=== PATIENT | female | born 2000 | race Caucasian/White ===

== ENCOUNTER 2020-07-08 08:23 | Emergency (ER) | payer BC, SELFPAY ==
[2020-07-08 08:24] VITALS: BP 133/84; PULSE 108; RESP 16; TEMP 36; O2SAT 98; BMI 28.2
[2020-07-08] MEDS: 0.9% Normal Saline 1,000 ML 1000 ML IV (08:57)
[2020-07-08] MEDS: Ondansetron 4 MG/2 ML Vial IV (08:58)
[2020-07-08] MEDS: Morphine 4 MG/ML Syringe IV (08:58)
[2020-07-08 09:16] LABS: Absolute Lymphocyte Count 1.39 X10^3/uL (0.83-4.51); Absolute Neutrophil Count 4.6 X10^3/uL (2.0-7.7); Basophil# 0.05 X10^3/uL; Basophil% 0.8 % (0-1); Eosinophil# 0.09 X10^3/uL; Eosinophils% 1.4 % (0-5); Hemoglobin 14.6 g/dL (12.0-15.0); Lymphocyte # 1.39 X10^3/ul (4.0); Lymphocyte % 21.4 % (19-41); Mean Corp Hgb Conc 33.2 g/dL (32-36); Mean Corpuscular Hgb 30.4 pg (27.0-32.0); Mean Corpuscular Volume 91.5 fL (81-99); Mean Platelet Vol. 9.7 fl (6.2-12.0); Monocyte# 0.36 X10^3/uL; Monocyte% 5.5 % (0-10); NRBC Flagged by Analyzer 0 % (0-5); Neutrophil # 4.59 X10^3/uL (2.7-7.7); Neutrophil % 70.6 % (47-70); Platelet Count 328 K/mm3 (150-450); RBC Distribution Width CV 12.3 % (11.6-14.6); RBC Distribution Width SD 41.3 fl (35.1-43.9); Red Blood Count 4.81 M/mm3 (4.2-5.4); White Blood Count 6.5 K/mm3 (4.4-11.0)
[2020-07-08 09:40] LABS: Mucous, Urine 0 SEEN /hpf (<or=2+); Red Blood Cells-Urine 0 SEEN /hpf (0-5); White Blood Cells 0 SEEN /hpf (0-5)
[2020-07-08 09:42] LABS: Color, Urine Yellow (Yellow); Glucose, Dipstick Normal (Normal); Ketone-Dipstick Negative (Negative); Leukocyte Esterase-Dipstick Negative /ul (Negative); Nitrite-Dipstick Negative (Negative); Occult Blood-Urine Negative /ul (Negative); Protein-Dipstick Negative (Negative); Urine Bilirubin Dipstick Negative (Negative); Urine Clarity Clear (Clear); Urine Urobilinogen Normal (Normal); Urine pH 6.5 (5.0 - 8.0)
[2020-07-08 09:43] LABS: ALB/GLOB Ratio 1.3 RATIO (0.9-2.4); AST(SGOT) 14 U/L (15-37); Alanine Aminotransfer ALT/SGPT 24 U/L (13-56); Albumin, Serum 4.3 g/dL (3.2-5.0); Alkaline Phosphatase 86 U/L (45-117); Anion Gap 7 (5-15); BUN 14 mg/dL (7-18); BUN/Creat Ratio 14.9 RATIO (10-20); Calcium,Total 9.8 mg/dL (8.5-10.1); Chloride 106 mmol/L (98-107); Creatinine, Serum 0.94 mg/dL (0.55-1.02); EST Glomerular Filtration Rate 79 mL/min (>60); Est Glom Filt Rate - Afr Amer 96 mL/min (>60); Estimated Creatinine Clearance 87.88 ml/min; Globulin 3.4 g/dL (2.2-4.2); Glucose 95 mg/dL (74-106); Lipase 141 U/L (73-393); Potassium 3.6 mmol/L (3.5-5.1); Protein, Total 7.7 g/dL (6.4-8.2); Sodium Level 141 mmol/L (136-145)
[2020-07-08 09:50] LABS: Bacteria RARE /hpf (None Seen); Squamous Epithelial Cells - UA 0-5 SEEN /hpf (5-10)
[2020-07-08 09:52] LABS: Internal QC Validated? YES +Cl - CLEAR BKGD; Pregnancy, Serum, hCG Quali. NEGATIVE Negative
--- NOTE | 2020-07-08 10:01 | CT_ITS ---
STUDY: CT ABDOMEN AND PELVIS WITH CONTRAST REASON FOR EXAM: Female, 20 years old. LUQ PAIN. Hx of appy RADIATION DOSAGE (If Supplied By Facility): CTDIvol = ( 12.53 ) mGy, DLP = ( 652.97 ) mGycm TECHNIQUE: Transaxial images were obtained from the dome of the diaphragm to the symphysis pubis without oral contrast. IV 100mL Isovue-300 was administered. Sagittal and coronal images were reconstructed. Individualized dose optimization techniques were used for this CT. COMPARISON: None. FINDINGS: The visualized lung bases are unremarkable. The visualized portions of the heart are within normal limits. Normal liver. Normal gallbladder and extrahepatic biliary system. Normal spleen. Normal pancreas. Normal bilateral adrenal glands. Normal right kidney. Normal left kidney. Normal visualized stomach. Normal small intestine. Normal colon. The patient is status post appendectomy. Normal abdominal aorta. Normal inferior vena cava. Normal retroperitoneum. Normal urinary bladder. Small follicles are seen in both ovaries. Normal abdominal wall. Limbus vertebrae of the superior anterior endplate of the L4 vertebrae. CT/Abdomen/Pelvis W IV Cont ONLY IMPRESSION: Normal enhanced CT of the abdomen and pelvis. Electronically Signed: James Barroso MD at 10:27 EST , Service support ,
--- NOTE | 2020-07-08 10:03 | ED.DCSUM_ITS ---
History of Present Illness Chief Complaint: Abd Pain Narrative: Patient presenting for evaluation secondary to abdominal pain. Patient reports that she had a relatively sudden onset of left upper quadrant abdominal pain this morning. She reports that it caused her difficulty with sleeping. Has been associated with some nausea, no vomiting. Patient denies that she has any urinary signs or symptoms. Most recent menstrual cycle was within the last 8 days. She denies any vaginal bleeding currently. No fevers. No diarrhea. No change in color or character of her stools. Patient has a history of a distant appendectomy. Patient took ibuprofen at home and it did not seem to alleviate her symptoms. Past Medical History - Allergies and Home Meds Allergies/Adverse Reactions: Allergies No Known Allergies Allergy (Verified 07/08/20 08:25) Primary Care Physician: Mila Mayberry MD [Primary Care Provider] - Surgical History: appendectomy Lives: With Family Smoking Status: Never smoker Alcohol: None Drugs: None Review of Systems All systems negative except as indicated General: Reports: Malaise Eyes: Denies: Visual changes - bilaterally, Diplopia ENT: Denies: Rhinorrhea, Sore throat Cardiovascular: Denies: Chest pain, Palpitations Respiratory: Denies: Dyspnea, Cough, Dyspnea on exertion Gastrointestinal: Reports: Abdominal pain, Nausea Genitourinary: Denies: Dysuria, Hematuria, Frequency Musculoskeletal: Denies: Back pain, Extremity Pain Skin: Denies: Rash, Wounds Neurological: Denies: Headache, Weakness, Numbness Physical Exam Vital Signs/Narrative: Vital Signs Temp Pulse Resp BP Pulse Ox 07/08/20 08:24 96.8 F L 108 H 16 133/84 H 98 Inital Vital Signs reviewed: Yes General: Well nourished, Well developed, No Acute Distress Head: Normocephalic, Atraumatic Eyes: Perrl, EOMI ENT: Moist mucous membranes, No rhinorrhea Neck: Supple, Nontender Cardiovascular: Regular rate, Regular rhythm, No murmurs Respiratory: No distress, CTA bilaterally, Chest nontender Abdomen: Soft, Nondistended, Normal bowel sounds, Tender - LUQ and LLQ. Negative for: Guarding, Rebound tenderness Back: Nontender, Normal Inspection Extremities: Nontender, No edema Skin: Normal color, No rash Neurological: Alert, Oriented x3, Cranial nerves II-XII grossly intact, Normal Strength, Normal Sensation Psychological: Normal affect, Normal Mood Diagnostic/Tx/Re-eval Clinical Impression(s) from Imaging Studies Abdomen/Pelvis CT 07/08/20 10:01 IMPRESSION: Normal enhanced CT of the abdomen and pelvis. Electronically Signed: James Barroso MD at 10:27 EST , Service support , Laboratory Data 07/08/20 07/08/20 07/08/20 09:00 09:00 09:00 WBC 6.5 RBC 4.81 Hgb 14.6 Hct 44.0 MCV 91.5 MCH 30.4 MCHC 33.2 RDW Std Deviation 41.3 RDW Coeff of [place] 12.3 Plt Count 328 MPV 9.7 Immature Gran % (Auto) 0.300 Neut % (Auto) 70.6 H Lymph % (Auto) 21.4 [place] % (Auto) 5.5 Eos % (Auto) 1.4 Baso % (Auto) 0.8 Absolute Neuts (auto) 4.6 Absolute Lymphs (auto) 1.39 Nucleated RBC % 0 Sodium 141 Potassium 3.6 Chloride 106 Carbon Dioxide 28.0 Anion Gap 7 BUN 14 Creatinine 0.94 Estim Creat Clear Calc 87.88 Est GFR (MDRD) Af Amer 96 Est GFR (MDRD) Non-Af 79 BUN/Creatinine Ratio 14.9 Glucose 95 Calcium 9.8 Total Bilirubin 0.50 AST 14 L ALT 24 Alkaline Phosphatase 86 Total Protein 7.7 Albumin 4.3 Globulin 3.4 Albumin/Globulin Ratio 1.3 Lipase 141 Serum , Qual NEGATIVE Urine Color Urine Clarity Urine pH Ur Specific [place] Urine Protein Urine Glucose (UA) Urine Ketones Urine Occult Blood Urine Nitrite Urine Bilirubin Urine Urobilinogen Ur Leukocyte Esterase Urine RBC Urine WBC Ur Squamous Epith Cells Urine Bacteria Urine Mucus 07/08/20 09:32 WBC RBC Hgb Hct MCV MCH MCHC RDW Std Deviation RDW Coeff of [place] Plt Count MPV Immature Gran % (Auto) Neut % (Auto) Lymph % (Auto) [place] % (Auto) Eos % (Auto) Baso % (Auto) Absolute Neuts (auto) Absolute Lymphs (auto) Nucleated RBC % Sodium Potassium Chloride Carbon Dioxide Anion Gap BUN Creatinine Estim Creat Clear Calc Est GFR (MDRD) Af Amer Est GFR (MDRD) Non-Af BUN/Creatinine Ratio Glucose Calcium Total Bilirubin AST ALT Alkaline Phosphatase Total Protein Albumin Globulin Albumin/Globulin Ratio Lipase Serum , Qual Urine Color Yellow Urine Clarity Clear Urine pH 6.5 Ur Specific [place] 1.010 Urine Protein Negative Urine Glucose (UA) Normal Urine Ketones Negative Urine Occult Blood Negative Urine Nitrite Negative Urine Bilirubin Negative Urine Urobilinogen Normal Ur Leukocyte Esterase Negative Urine RBC 0 SEEN Urine WBC 0 SEEN Ur Squamous Epith Cells 0-5 SEEN Urine Bacteria RARE Urine Mucus 0 SEEN - Medical Decision Making Patient to abdominal pain. IV was established patient was given morphine and Zofran. CBC CMP lipase urinalysis and test were all obtained were found to be unremarkable. CT abdomen and pelvis with IV contrast was performed, does not show any evidence of acute pathology. Repeat evaluation of the patient at 11 AM shows the patient to have improvement of her abdominal symptoms, but continued left upper quadrant pain. This potentially could be associated with an ulcer, patient will be started on a PPI. Patient also will be sent home with a short course of [place] for pain control. She understands signs and symptoms which to return. Given the sudden onset of this, I do believe that the patient would benefit from 24-hour follow-up. I discussed this with on-call surgery Dr. Villarreal who agrees to see the patient in follow-up. ED Disposition - Plan for ED Patient: Disposition: Home or Assisted Living Diagnosis: Abdominal pain Instructions: ED Abdominal Pain Unkn Cause Fem Prescriptions: Hydrocodone Bitart/Apap 5-325 [[place] 5MG-325MG] 1 tab PO Q6H PRN PRN 3 Days #9 tab PRN Reason: Pain Prescription Printed Omeprazole 40 mg PO DAILY #30 capsule.dr Prescription Printed Referrals: Lani Villarreal MD [STAFF PHYSICIAN] - 1 Day
--- NOTE | 2020-07-08 10:56 | NURSING ---
DR GARCIA PAGED
[2020-07-08 11:22] VITALS: PULSE 76; RESP 16; O2SAT 97
== END 2020-07-08 11:24 | disposition home or self-care (01) ==
PROVIDERS: Emergency Provider Emergency Medicine; PCP Pediatrics
DX: R10.12 Left upper quadrant pain (principal); R10.32 Left lower quadrant pain; Z90.89 Acquired absence of other organs
CPT/HCPCS: 74177; 80053; 81001; 83690; 84703; 85025; 96361; 96374; 96375; 99284; J7030; Q9967; J2405

== ENCOUNTER 2021-05-13 03:23 | Emergency (ER) | payer BC, SELFPAY ==
[2021-05-13 03:24] VITALS: BP 133/96; PULSE 95; RESP 18; TEMP 36.7; O2SAT 95; BMI 27.4
[2021-05-13 03:26] VITALS: BP 133/96; PULSE 95; RESP 18; TEMP 36.7; O2SAT 95
--- NOTE | 2021-05-13 03:38 | CT_ITS ---
STUDY: CT ABDOMEN AND PELVIS WITHOUT CONTRAST REASON FOR EXAM: Female, 20 years old. LEFT FLANK PAIN RADIATION DOSAGE (If Supplied By Facility): CTDIvol = ( 7.82 ) mGy, DLP = ( 412.11 ) mGycm TECHNIQUE: Transaxial images were obtained from the dome of the diaphragm to the symphysis pubis without oral contrast, and without intravenous contrast. Sagittal and coronal images were reconstructed. Individualized dose optimization techniques were used for this CT. COMPARISON: None. FINDINGS: The visualized lung bases are unremarkable. The visualized portions of the heart are within normal limits. Normal liver. Normal gallbladder and extrahepatic biliary system. Normal spleen. Normal pancreas. Normal bilateral adrenal glands. Normal right kidney. Normal left kidney. Normal visualized stomach. Normal small intestine. There is abundant stool in the colon from the cecum to the rectum. There is non-visualization of the appendix. Normal abdominal aorta. Normal inferior vena cava. Normal retroperitoneum. There are bilateral phleboliths in the pelvis. Normal urinary bladder. Normal visualized uterus. Normal abdominal wall. There is a limbus vertebra at the level of L4. There is minimal degenerative change. CT/Abdomen/Pelvis without Cont IMPRESSION: Constipation. No visualized renal ureteral or bladder calculi. Nonvisualization of the appendix. Electronically Signed: Jenn Lowry MD at 5:41 EST Tel , Service support ,
--- NOTE | 2021-05-13 03:39 | EDS_ITS ---
HPI History of Present Illness Chief Complaint: Complaint Narrative Narrative: Patient is a 20-year-old female who states that she has had urinary frequency urgency and dysuria for the past 1 to 2 days. She states that this evening she developed pain and her back mainly on the left with no trauma. She states she has not been able to sleep secondary to this. She reports that the she then noticed her urine was becoming bloody and she is concerned about possible kidney stone. Secondary to this she presents for evaluation. Patient denies any vaginal discharge or concern for STD and denies [facility] Medical History No pertinent past medical history Home Medications bupropion HCl 75 mg PO DAILY 05/13/21 [History Last Taken Unknown] ketorolac 10 mg PO Q6H PRN 5 Days #20 tab 05/13/21 [Rx Last Taken Unknown] levonorgestrel 1.5 mg PO DAILY 05/13/21 [History Last Taken Unknown] phenazopyridine [Pyridium] 200 mg PO TID 2 Days #6 tab 05/13/21 [Rx Last Taken Unknown] sertraline 50 mg PO DAILY 05/13/21 [History Last Taken Unknown] sulfamethoxazole-trimethoprim [Bactrim DS] 1 tab PO BID #20 tab 05/13/21 [Rx Last Taken Unknown] Allergy/AdvReac Type Severity Reaction Status Date / Time No Known Allergies Allergy Verified 07/10/20 10:04 Family History (Updated 07/10/20 @ 10:02 by Bertha Shukla) Father Diabetes Surgical History (Updated 07/10/20 @ 10:02 by Bertha Shukla) History of appendectomy (~2009) Social History (Updated 07/10/20 @ 10:[address] Lani Villarreal MD) Smoking Status: Never smoker ROS ROS ED Constitutional Constitutional ED: Denies chills or fever(s) Cardiovascular Cardiovascular: Denies chest pain Respiratory/Chest Respiratory/Chest: Denies cough or dyspnea Gastrointestinal Gastrointestinal: Reports abdominal pain; Denies diarrhea, nausea or vomiting Genitourinary Genitourinary ED: Reports dysuria and hematuria Musculoskeletal Musculoskeletal: Reports back pain; Denies myalgias Integumentary Denies rash Neurologic Neurologic: Denies headache(s) EXAM Physical Exam Const Vital Signs: 05/13/21 03:24 05/13/21 03:26 Temperature 98.0 F 98.0 F Temperature Source Temporal Temporal Pulse Rate 95 95 Respiratory Rate 18 18 Blood Pressure 133/96 H 133/96 H Blood Pressure Mean 108 108 Pulse Ox 95 95 Oxygen Delivery Method Room Air Room Air Positive well nourished and well developed General Appearance ED: well developed Eyes PERRL and EOMs intact bilaterally Neck supple Resp normal respiratory effort and clear to auscultation bilaterally Cardio regular rate and regular rhythm Rate: other Other Details: Radial pulses are plus 2 out of 4 bilaterally are equal and symmetric GI non-distended and no masses GI Narrative: Abdomen is soft and nondistended with normal active bowel sounds. There is diffuse pain with palpation in the lower abdomen greatest in the suprapubic region without voluntary guarding or rigidity. Auscultation: normoactive bowel sounds Palpation: soft Back/Spine Back/Spine Narrative: Positive left CVA pain Extremity normal to inspection Neuro oriented x3 and CN's II-XII intact bilaterally Sensorium / Orientation: alert Motor Exam: strength 5/5 throughout Psych mental status grossly normal Skin no rashes or lesions noted MDM MDM MDM Narrative Medical decision making narrative: Patient presented to the ER afebrile but she did have flank pain slightly greater on the left and reported hematuria therefore there was concern for kidney stone and basic labs and a CT were obtained. Labs revealed leukocytosis at 14.8 but no left shift. Patient also had no changes to suggest acute kidney injury. CT was obtained which revealed no obvious kidney stone. After patient was treated with IV fluids Pyridium and Toradol she did report improvement of her pain. At this time patient's urine is consistent with infection she has an elevated white count which also supports this but she does not have a fever tachycardia or hypotension to suggest systemic infection. Therefore this time I do not feel patient needs inpatient treatment but can be placed on outpatient antibiotics and return to the hospital if she has any worsening of her symptoms. Discharge Plan Triage Chief Complaint: Complaint ED Provider: Eulogio Benton Dx/Rx/DC Orders Clinical Impression: Acute pyelonephritis Instructions: ED Pyelonephritis, Female (Adult) Prescriptions: New phenazopyridine [Pyridium] 200 mg tablet 200 mg PO TID 2 Days Qty: 6 RF: 0 ketorolac 10 mg tablet 10 mg PO Q6H PRN (Reason: pain) 5 Days Qty: 20 RF: 0 sulfamethoxazole-trimethoprim [Bactrim DS] 800-160 mg tablet 1 tab PO BID Qty: 20 RF: 0 No Action bupropion HCl 75 mg tablet 75 mg PO DAILY RF: 0 sertraline 50 mg tablet 50 mg PO DAILY RF: 0 levonorgestrel 1.5 mg tablet 1.5 mg PO DAILY RF: 0 Primary Care Provider: Chika Lambert Referrals: Chika Lambert MD [Primary Care Provider] - Disposition Disposition: Home, Self Care
--- NOTE | 2021-05-13 04:11 | ED.RN ---
TORADOL 30MG AND 1 L 0.9%NS STARTED ON PATIENT ORDERED.
--- NOTE | 2021-05-13 04:57 | ED.RN ---
Rocephin started as ordered. Pain is down to 6/10.
[2021-05-13 06:04] VITALS: BP 108/78; PULSE 75; RESP 16; O2SAT 99
--- NOTE | 2021-05-13 06:04 | ED.RN ---
All medications has completed.
[2021-05-13 06:49] LABS: Mucous, Urine 0 SEEN /hpf (<or=2+)
[2021-05-13 07:14] LABS: Color, Urine Amber (Yellow); Glucose, Dipstick NEGATIVE (Normal); Ketone-Dipstick 5 mg/dl (Negative); Urine Bilirubin Dipstick Negative (Negative); Urine Clarity Turbid (Clear)
[2021-05-13 07:15] LABS: Bacteria 1+ /hpf (None Seen); Internal QC Validated? YES +Cl - CLEAR BKGD; Leukocyte Esterase-Dipstick 500 /ul (Negative); Nitrite-Dipstick Negative (Negative); Occult Blood-Urine 250 /ul (Negative); Pregnancy, Urine Negative Negative; Protein-Dipstick 500 mg/dl (Negative); Red Blood Cells-Urine 50-100 SEEN /hpf (0-5); Squamous Epithelial Cells - UA 0-5 SEEN /hpf (5-10); Urine Urobilinogen Normal (Normal); White Blood Cells >100 SEEN /hpf (0-5)
[2021-05-13 07:18] LABS: Absolute Lymphocyte Count 2.15 X10^3/uL (0.83-4.51); Absolute Neutrophil Count 11.5 X10^3/uL (2.0-7.7); Basophil# 0.08 X10^3/uL; Basophil% 0.5 % (0-1); Eosinophil# 0.22 X10^3/uL; Eosinophils% 1.5 % (0-5); Hematocrit 40.2 % (37-47); Hemoglobin 13.3 g/dL (12.0-15.0); Lymphocyte # 2.15 X10^3/ul (0.83-4.51); Lymphocyte % 14.5 % (19-41); Mean Corp Hgb Conc 33.1 g/dL (32-36); Mean Corpuscular Volume 90.7 fL (81-99); Mean Platelet Vol. 9.1 fl (6.2-12.0); Monocyte# 0.81 X10^3/uL; Monocyte% 5.5 % (0-10); NRBC Flagged by Analyzer 0 % (0-5); Neutrophil # 11.54 X10^3/uL (2.7-7.7); Neutrophil % 77.7 % (47-70); Platelet Count 330 K/mm3 (150-450); RBC Distribution Width CV 12.5 % (11.6-14.6); RBC Distribution Width SD 41.7 fl (35.1-43.9); Red Blood Count 4.43 M/mm3 (4.2-5.4); White Blood Count 14.9 K/mm3 (4.4-11.0)
[2021-05-13 07:53] LABS: Anion Gap 7 (5-15); BUN 14 mg/dL (7-18); BUN/Creat Ratio 21.5 RATIO (10-20); Calcium,Total 8.5 mg/dL (8.5-10.1); Chloride 107 mmol/L (98-107); Creatinine, Serum 0.65 mg/dL (0.55-1.02); EST Glomerular Filtration Rate 121 mL/min (>60); Est Glom Filt Rate - Afr Amer 147 mL/min (>60); Estimated Creatinine Clearance 127.09 ml/min; Glucose 95 mg/dL (74-106); Potassium 3.6 mmol/L (3.5-5.1); Sodium Level 139 mmol/L (136-145)
== END 2021-05-13 06:05 | disposition home or self-care (01) ==
PROVIDERS: Emergency Provider Emergency Medicine; PCP Internal Medicine
DX: N10 Acute pyelonephritis (principal)
CPT/HCPCS: 74176; 80048; 81001; 81025; 85025; 87077; 87086; 87088; 87186; 99284; J7030; A4216